=== PATIENT | female | born 1950 ===

== ENCOUNTER 2018-04-06 09:34 | Outpatient (CLI) | payer MEDICAID | END 2018-04-06 09:35 | disposition home or self-care (01) | LOC: RAD 09:34 ==

== ENCOUNTER 2018-06-02 05:43 | Outpatient (CLI) | payer MEDICAID | END 2018-06-02 05:44 | disposition home or self-care (01) | LOC: PET-BROA 05:43 | DX: C50.511 Malignant neoplasm of lower-outer quadrant of right female breast (principal) ==